=== PATIENT | male | born 1955 | race Caucasian/White ===

== ENCOUNTER 2018-04-26 07:11 | Emergency (ER) | payer OTHER ==
[~2018-04-26] VITALS: Ht 170.2 cm; Wt 59.0 kg
[~2018-04-26 07:11] MED LIST: ALPR1TAB2 PO; INSU100V9 SUBCUT; KLO.5 PO; METO-290 PO; MIRT15TA7 PO; NOR10 PO; PRO40 PO
[2018-04-26 07:15] VITALS: BP_SYST 132
[2018-04-26] MEDS ORDERED: LIDOCAINE 1%, 20 ML MDV 20 ML ONE (07:58)
[2018-04-26] MEDS ORDERED: ACETAMINOPHEN/CODEINE 300 MG-30 MG TABLET PO ONE (08:15)
[2018-04-26 08:48] VITALS: BP_SYST 132
== END 2018-04-26 08:48 | disposition home or self-care (01) ==
LOC: SED 07:11
DX: S01.01XA Laceration without foreign body of scalp, initial encounter (principal); I10 Essential (primary) hypertension; E11.29 Type 2 diabetes mellitus with other diabetic kidney complication; N28.9 Disorder of kidney and ureter, unspecified; Z79.4 Long term (current) use of insulin; Z79.899 Other long term (current) drug therapy; W01.10XA Fall on same level from slipping, tripping and stumbling with subsequent striking against unspecified object, initial encounter; Y93.89 Activity, other specified; Y92.89 Other specified places as the place of occurrence of the external cause; Y99.8 Other external cause status
CPT/HCPCS: 12002; 70450; 99284; J2001

== ENCOUNTER 2018-05-19 10:33 | Emergency (ER) | payer OTHER ==
[~2018-05-19] VITALS: Ht 170.2 cm; Wt 59.0 kg
[2018-05-19 10:37] VITALS: BP_SYST 126
[2018-05-19 10:55] VITALS: BP_SYST 126
== END 2018-05-19 10:55 | disposition home or self-care (01) ==
LOC: SED 10:33
DX: S01.01XD Laceration without foreign body of scalp, subsequent encounter (principal); I10 Essential (primary) hypertension; E11.29 Type 2 diabetes mellitus with other diabetic kidney complication; N28.9 Disorder of kidney and ureter, unspecified; Z79.4 Long term (current) use of insulin; Z79.899 Other long term (current) drug therapy; X58.XXXD Exposure to other specified factors, subsequent encounter
CPT/HCPCS: 99281

== ENCOUNTER 2018-09-06 07:05 | Emergency (ER) | payer OTHER ==
[~2018-09-06] VITALS: Ht 170.2 cm; Wt 77.1 kg
[2018-09-06 07:09] VITALS: BP_SYST 182
[2018-09-06] MEDS ORDERED: NACL 0.9% 1,000 ML IV ONE ×2 (07:44→08:00)
[2018-09-06] MEDS ORDERED: ASPIRIN 81 MG TAB.CHEW PO ONE (07:45)
[2018-09-06] MEDS ORDERED: NALOXONE HCL 2 MG/2 ML SYR IVP ONE (07:45)
[2018-09-06] MEDS ORDERED: INSULIN REGULAR, HUMAN 10 UNITS/0.1 ML INJ IVP ONE (08:00)
[2018-09-06 08:28] LABS: BASOPHILS % (AUTO) 0.5 % (0.0-2.0); EOSINOPHILS # (AUTO) 0.1 K/uL (0.0-0.4); EOSINOPHILS % (AUTO) 2.2 % (0.0-4.0); HEMATOCRIT 37.5 % (36-54); HEMOGLOBIN 12.6 g/dL (14.0-18.0); LYMPHOCYTES # (AUTO) 0.6 K/uL (1.0-5.5); LYMPHOCYTES % (AUTO) 12.8 % (20.5-51.5); MEAN CORPUSCULAR HEMOGLOBIN 34 pg (27-31); MEAN CORPUSCULAR HGB CONC 34 % (32-36); MEAN CORPUSCULAR VOLUME 101 fL (79.0-98.0); MONOCYTES # (AUTO) 0.2 K/uL (0.0-1.0); MONOCYTES % (AUTO) 3.7 % (1.7-9.3); NEUTROPHILS # (AUTO) 4.1 K/uL (1.8-7.7); NEUTROPHILS % (AUTO) 80.8 % (40.0-70.0); PLATELET COUNT (AUTO) 185 K/uL (130-430); RED BLOOD CELL COUNT(AUTO) 3.73 MIL/uL (4.2-6.2); RED CELL DISTRIBUTION WIDTH 13.5 % (9.0-15.0)
[2018-09-06 08:32] LABS: ANION GAP 12 (5-15); CALCIUM 9.4 mg/dL (8.4-11.0); CHLORIDE 92 mmol/L (98-107); CREATININE 4.77 mg/dL (0.55-1.30); GLUCOSE 379 mg/dL (70-99); POTASSIUM 3.6 mmol/L (3.5-5.1); SODIUM SERUM 129 mmol/L (136-145); UREA NITROGEN, BLOOD 54 mg/dL (8-21)
[2018-09-06 08:34] LABS: GFR AFRICAN AMERICAN 16 mL/min (>90); INR 1.1 (0.80-1.20); PROTHROMBIN TIME 10.9 SECS (9.5-12.5)
[2018-09-06 08:36] LABS: ALANINE AMINOTRANSFERASE 25 U/L (12-78); ALBUMIN 3.8 g/dL (3.4-4.8); AMYLASE 80 U/L (0-100); ASPARTATE AMINOTRANSFERASE 27 U/L (10-37); LIPASE 419 U/L (73-393); TOTAL BILIRUBIN 0.6 mg/dL (0.0-1.0)
[2018-09-06 08:37] LABS: ALCOHOL, BLOOD < 3 mg/dL (<10)
[2018-09-06 08:47] LABS: BILIRUBIN,URINE NEGATIVE (NEGATIVE); BLOOD, URINE 1+ (NEGATIVE); CLARITY/URINE CLEAR (CLEAR); COLOR,URINE YELLOW (YELLOW); GLUCOSE,URINE 3+ (NEGATIVE); KETONES,URINE NEGATIVE (NEGATIVE); LEUKOCYTE ESTERASE ,URINE NEGATIVE (NEGATIVE); NITRITE, URINE NEGATIVE (NEGATIVE); PROTEIN URINE 3+ (NEGATIVE); UROBILINOGEN,URINE 0.2 (0.2-1.0)
[2018-09-06 08:51] LABS: ACETAMINOPHEN < 1 ug/mL (1-30)
[2018-09-06 09:14] LABS: CKMB RELATIVE INDEX 2.7 (0.0-2.9); CREATINE KINASE MB 9.9 ng/mL (0-3.6)
[2018-09-06 09:17] LABS: BARBITURATE, URINE NEGATIVE (NEG <=200); BENZODIAZEPINE, URINE NEGATIVE (NEG <=150); CANNABINOID, URINE POSITIVE (NEG <=50); COCAINE, URINE NEGATIVE (NEG <=150); METHAMPHETAMINES SCREEN,URINE NEGATIVE (NEG <=500); OPIATE, URINE NEGATIVE (NEG <=100); PHENCYCLIDINE SCREEN,URINE NEGATIVE (NEG <=25); UR TRICYCLIC ANTIDEPRESSANTS NEGATIVE (NEG <=300); URINE AMPHETAMINE NEGATIVE (NEG <=500); URINE METHADONE NEGATIVE (NEG <=200); URINE OXYCODONE SCREEN NEGATIVE (NEG <=100); URINE PROPOXYPHENE SCREEN NEGATIVE (NEG <=300)
[2018-09-06] MEDS ORDERED: LORazepam 2 MG/ML VIAL (FOR ER USE) IVP ONE (09:30)
[2018-09-06 09:46] LABS: BACTERIA,URINE None Seen /HPF (None Seen); WBC,URINE NONE SEEN /HPF (0-3)
[2018-09-06 10:05] VITALS: BP_SYST 211
[2018-09-06 10:18] LABS: HYALINE CASTS, URINE 0-10 /LPF (None Seen)
== END 2018-09-06 10:03 | disposition short-term general hospital (02) ==
LOC: SED 07:05
DX: R41.82 Altered mental status, unspecified (principal); I61.9 Nontraumatic intracerebral hemorrhage, unspecified; E11.22 Type 2 diabetes mellitus with diabetic chronic kidney disease; I12.9 Hypertensive chronic kidney disease with stage 1 through stage 4 chronic kidney disease, or unspecified chronic kidney disease; N18.9 Chronic kidney disease, unspecified; Z99.2 Dependence on renal dialysis
CPT/HCPCS: 36415; 70450; 71045; 80053; 80307; 81000; 82140; 82150; 82550; 82553; 82962; 83605; 83690; 84484; 85025; 85610; 85730; 87040; 93005; 96361; 96374; 96375; 99285; G0480; G0481; G0482; J2060; J2310; J7030; J1815

== ENCOUNTER 2018-12-04 16:48 | Inpatient (IN) | payer OTHER ==
[~2018-12-04] VITALS: Ht 170.2 cm; Wt 55.5 kg
[2018-12-04 16:50] VITALS: BP_SYST 101
[2018-12-04] MEDS ORDERED: LORazepam 2 MG/ML VIAL (FOR ER USE) IVP ONE (17:00)
[2018-12-04] MEDS ORDERED: HALOPERIDOL LACTATE 5 MG/ML VIAL IVP ONE (17:00)
[2018-12-04] MEDS ORDERED: DIPHENHYDRAMINE INJ 50 MG/ML VIAL IVP ONE (17:00)
[2018-12-04] MEDS ORDERED: DIPHENHYDRAMINE INJ 50 MG/ML VIAL ONE (17:05)
[2018-12-04] MEDS ORDERED: HALOPERIDOL LACTATE 5 MG/ML VIAL ONE (17:06)
[2018-12-04] MEDS ORDERED: LORazepam 2 MG/ML VIAL (FOR ER USE) ONE (17:06)
[2018-12-04 17:19] LABS: BASOPHILS % (AUTO) 0.1 % (0.0-2.0); EOSINOPHILS % (AUTO) 0.2 % (0.0-4.0); HEMATOCRIT 29.7 % (36-54); HEMOGLOBIN 10.1 g/dL (14.0-18.0); LYMPHOCYTES # (AUTO) 1.9 K/uL (1.0-5.5); LYMPHOCYTES % (AUTO) 15.8 % (20.5-51.5); MEAN CORPUSCULAR HEMOGLOBIN 34 pg (27-31); MEAN CORPUSCULAR HGB CONC 34 % (32-36); MEAN CORPUSCULAR VOLUME 100 fL (79.0-98.0); MONOCYTES # (AUTO) 0.7 K/uL (0.0-1.0); MONOCYTES % (AUTO) 6.2 % (1.7-9.3); NEUTROPHILS # (AUTO) 9.2 K/uL (1.8-7.7); NEUTROPHILS % (AUTO) 77.7 % (40.0-70.0); PLATELET COUNT (AUTO) 195 K/uL (130-430); RED BLOOD CELL COUNT(AUTO) 2.97 MIL/uL (4.2-6.2); WHITE BLOOD COUNT (AUTO) 11.8 K/uL (4.8-10.8)
[2018-12-04] MEDS ORDERED: ISOS20TA8 PO (17:21)
[2018-12-04] MEDS ORDERED: LIP40 PO (17:21)
[2018-12-04] MEDS ORDERED: HYDR100T25 PO (17:21)
[2018-12-04] MEDS ORDERED: ASPI-1155 PO (17:21)
[2018-12-04] MEDS ORDERED: METO-442 PO (17:21)
[2018-12-04] MEDS ORDERED: CAT3PAT TD (17:21)
[2018-12-04 17:22] LABS: ANION GAP 17 (5-15); CALCIUM 8.9 mg/dL (8.4-11.0); CHLORIDE 93 mmol/L (98-107); CREATININE 5.15 mg/dL (0.55-1.30); GLUCOSE 346 mg/dL (70-99); POTASSIUM 4.2 mmol/L (3.5-5.1); SODIUM SERUM 132 mmol/L (136-145); UREA NITROGEN, BLOOD 55 mg/dL (8-21)
[2018-12-04 17:23] LABS: GFR AFRICAN AMERICAN 15 mL/min (>90)
[2018-12-04 17:26] LABS: INR 1.1 (0.80-1.20)
[2018-12-04 17:27] LABS: ALANINE AMINOTRANSFERASE 33 U/L (12-78); ALBUMIN 3.5 g/dL (3.4-4.8); ASPARTATE AMINOTRANSFERASE 33 U/L (10-37); TOTAL BILIRUBIN 0.9 mg/dL (0.0-1.0)
[2018-12-04 17:31] LABS: BILIRUBIN,URINE NEGATIVE (NEGATIVE); CLARITY/URINE CLEAR (CLEAR); COLOR,URINE YELLOW (YELLOW); GLUCOSE,URINE 3+ (NEGATIVE); KETONES,URINE NEGATIVE (NEGATIVE); NITRITE, URINE NEGATIVE (NEGATIVE); PROTEIN URINE 2+ (NEGATIVE); UROBILINOGEN,URINE 0.2 (0.2-1.0)
[2018-12-04 17:32] LABS: BLOOD, URINE TRACE (NEGATIVE); LEUKOCYTE ESTERASE ,URINE TRACE (NEGATIVE)
[2018-12-04 17:33] LABS: BACTERIA,URINE FEW /HPF (None Seen); BARBITURATE, URINE NEGATIVE (NEG <=200); BENZODIAZEPINE, URINE NEGATIVE (NEG <=150); CANNABINOID, URINE POSITIVE (NEG <=50); COCAINE, URINE NEGATIVE (NEG <=150); METHAMPHETAMINES SCREEN,URINE NEGATIVE (NEG <=500); OPIATE, URINE NEGATIVE (NEG <=100); PHENCYCLIDINE SCREEN,URINE NEGATIVE (NEG <=25); RBC,URINE 0-3 /HPF (0-3); UR TRICYCLIC ANTIDEPRESSANTS NEGATIVE (NEG <=300); URINE AMPHETAMINE NEGATIVE (NEG <=500); URINE METHADONE NEGATIVE (NEG <=200); URINE OXYCODONE SCREEN NEGATIVE (NEG <=100); URINE PROPOXYPHENE SCREEN NEGATIVE (NEG <=300)
[2018-12-04 17:34] LABS: MUCUS,URINE None Seen /LPF (None Seen)
[2018-12-04 17:40] LABS: ALCOHOL, BLOOD < 3 mg/dL (<10)
[2018-12-04] MEDS ORDERED: ETOMIDATE 20 MG/ 10 ML VIAL (AMIDATE) IVP ONE (18:00)
[2018-12-04] MEDS ORDERED: cefTRIAXone 1 GM in D5W 50 ML IV ONE (18:00)
[2018-12-04] MEDS ORDERED: INSULIN REGULAR, HUMAN 10 UNITS/0.1 ML INJ IVP ONE (18:00)
[2018-12-04] MEDS ORDERED: cefTRIAXone 1 GM VIAL ONE (18:24)
[2018-12-04] MEDS ORDERED: NACL 0.9% 1,000 ML IV ONE ×2 (19:15)
[2018-12-04] MEDS ORDERED: ENALAPRILAT DIHYDRATE 1.25 MG/ML VIAL IVP ONE (19:15)
[2018-12-04] MEDS ORDERED: ENALAPRILAT DIHYDRATE 1.25 MG/ML VIAL ONE (19:24)
[2018-12-04] MEDS ORDERED: D5/0.45 NS 1,000 ML IV ONE (20:15)
[2018-12-04 20:50] VITALS: BP_SYST 147
[2018-12-04 21:00] VITALS: BP_SYST 147; BP_SYST 152
[2018-12-04] MEDS ORDERED: HALOPERIDOL LACTATE 5 MG/ML VIAL IM ONE (21:45)
[2018-12-04] MEDS ORDERED: ACETAMINOPHEN 650 MG/20.3 ML UDC GT PRN (21:45)
[2018-12-04] MEDS ORDERED: cloNIDine HCL 0.3 MG/24 HR PATCH.TDWK TD SCH (21:45)
[2018-12-04] MEDS ORDERED: hydrALAZINE HCL 20 MG/ML VIAL IVP PRN (21:45)
[2018-12-04 22:00] VITALS: BP_SYST 100
[2018-12-04] MEDS: amLODIPine BESYLATE 10 MG TABLET PO SCH (22:03)
[2018-12-04] MEDS ORDERED: amLODIPine BESYLATE 10 MG TABLET ONE (22:09)
[2018-12-04 22:36] LABS: CKMB RELATIVE INDEX 1.3 (0.0-2.9); CREATINE KINASE MB 10.2 ng/mL (0-3.6)
[2018-12-04 23:00] VITALS: BP_SYST 148
[2018-12-05] VITALS (24 sets, daily range): BP systolic 100–212
[2018-12-05 05:53] LABS: BASOPHILS % (AUTO) 0.3 % (0.0-2.0); EOSINOPHILS % (AUTO) 0.2 % (0.0-4.0); HEMATOCRIT 26.5 % (36-54); HEMOGLOBIN 8.8 g/dL (14.0-18.0); LYMPHOCYTES # (AUTO) 0.8 K/uL (1.0-5.5); LYMPHOCYTES % (AUTO) 9.8 % (20.5-51.5); MEAN CORPUSCULAR HEMOGLOBIN 33 pg (27-31); MEAN CORPUSCULAR HGB CONC 33 % (32-36); MEAN CORPUSCULAR VOLUME 98 fL (79.0-98.0); MONOCYTES # (AUTO) 0.5 K/uL (0.0-1.0); MONOCYTES % (AUTO) 5.9 % (1.7-9.3); NEUTROPHILS # (AUTO) 7.2 K/uL (1.8-7.7); NEUTROPHILS % (AUTO) 83.8 % (40.0-70.0); PLATELET COUNT (AUTO) 125 K/uL (130-430); WHITE BLOOD COUNT (AUTO) 8.6 K/uL (4.8-10.8)
[2018-12-05 06:05] LABS: CREATININE 5.04 mg/dL (0.55-1.30); POTASSIUM 4.2 mmol/L (3.5-5.1)
[2018-12-05] MEDS: INSULIN REGULAR, HUMAN 100 UNITS/ML, 10 ML VIAL (novoLIN R) SUBCUT PRN ×2 (06:32→11:45)
[2018-12-05] MEDS ORDERED: cloNIDine HCL 0.1 MG TABLET PO PRN (07:45)
[2018-12-05] MEDS: ATORVASTATIN 20 MG TABLET PO SCH (08:12)
[2018-12-05] MEDS: ISOSORBIDE DINITRATE 20 MG TABLET (ISORDIL) PO SCH ×3 (08:12→21:36)
[2018-12-05] MEDS: METOPROLOL TARTRATE 50 MG TABLET PO SCH ×2 (08:13→21:37)
[2018-12-05] MEDS: amLODIPine BESYLATE 10 MG TABLET PO SCH (08:13)
[2018-12-05] MEDS: ASPIRIN 81 MG TAB.CHEW PO SCH (08:13)
[2018-12-05] MEDS: hydrALAZINE HCL 25 MG TABLET PO SCH ×3 (08:18→21:37)
[2018-12-05] MEDS ORDERED: INSULIN GLARGINE 100 UNITS/ML 10 ML VIAL SUBCUT SCH (09:00)
[2018-12-05] MEDS ORDERED: cloNIDine HCL 0.3 MG/24 HR PATCH.TDWK TD SCH (09:00)
[2018-12-05] MEDS ORDERED: hydrALAZINE HCL 20 MG/ML VIAL IVP ONE (14:15)
[2018-12-05] MEDS: LORazepam 2 MG/ML VIAL IVP PRN (16:19)
[2018-12-05] MEDS: cefTRIAXone 1 GM in D5W 50 ML IV SCH (17:19)
[2018-12-06] VITALS (23 sets, daily range): BP systolic 114–175
[2018-12-06 05:43] LABS: CREATININE 4.01 mg/dL (0.55-1.30)
[2018-12-06 05:46] LABS: BASOPHILS % (AUTO) 0.4 % (0.0-2.0); EOSINOPHILS # (AUTO) 0.1 K/uL (0.0-0.4); EOSINOPHILS % (AUTO) 1.1 % (0.0-4.0); HEMATOCRIT 29.9 % (36-54); LYMPHOCYTES # (AUTO) 0.7 K/uL (1.0-5.5); LYMPHOCYTES % (AUTO) 9.3 % (20.5-51.5); MEAN CORPUSCULAR HEMOGLOBIN 34 pg (27-31); MEAN CORPUSCULAR HGB CONC 34 % (32-36); MEAN CORPUSCULAR VOLUME 100 fL (79.0-98.0); MONOCYTES # (AUTO) 0.6 K/uL (0.0-1.0); MONOCYTES % (AUTO) 8.3 % (1.7-9.3); NEUTROPHILS # (AUTO) 5.8 K/uL (1.8-7.7); NEUTROPHILS % (AUTO) 80.9 % (40.0-70.0); PLATELET COUNT (AUTO) 186 K/uL (130-430); RED BLOOD CELL COUNT(AUTO) 2.99 MIL/uL (4.2-6.2); WHITE BLOOD COUNT (AUTO) 7.2 K/uL (4.8-10.8)
[2018-12-06 05:59] LABS: ALBUMIN 2.9 g/dL (3.4-4.8); TOTAL BILIRUBIN 0.6 mg/dL (0.0-1.0)
[2018-12-06 06:02] LABS: POTASSIUM 2.8 mmol/L (3.5-5.1)
[2018-12-06] MEDS ORDERED: D5W 1,000 ML IV PRN ×2 (06:02)
[2018-12-06] MEDS ORDERED: DEXTROSE 50% JECT 50 ML DISP.SYRIN ONE (06:11)
[2018-12-06] MEDS ORDERED: GLUCOSE 15 GM GEL (in 37.5 GM TUBE) PO PRN (06:15)
[2018-12-06] MEDS ORDERED: POTASSIUM CHLORIDE 20 MEQ/PKT PACKET PO ONE (07:45)
[2018-12-06] MEDS: hydrALAZINE HCL 25 MG TABLET PO SCH ×3 (09:00→20:28)
[2018-12-06] MEDS: DEXTROSE 50% JECT 50 ML DISP.SYRIN IVP PRN ×2 (09:42→16:12)
[2018-12-06] MEDS: hydrALAZINE HCL 20 MG/ML VIAL IVP PRN (09:47)
[2018-12-06] MEDS: ATORVASTATIN 20 MG TABLET PO SCH (11:30)
[2018-12-06] MEDS: amLODIPine BESYLATE 10 MG TABLET PO SCH (11:30)
[2018-12-06] MEDS: METOPROLOL TARTRATE 50 MG TABLET PO SCH ×2 (11:30→20:29)
[2018-12-06] MEDS: ASPIRIN 81 MG TAB.CHEW PO SCH (11:30)
[2018-12-06] MEDS: ISOSORBIDE DINITRATE 20 MG TABLET (ISORDIL) PO SCH ×3 (11:31→20:29)
[2018-12-06] MEDS: LORazepam 2 MG/ML VIAL IVP PRN ×2 (11:48→23:00)
[2018-12-06] MEDS ORDERED: D10W 1,000 ML IV SCH (13:00)
[2018-12-06] MEDS: cefTRIAXone 1 GM in D5W 50 ML IV SCH (16:32)
[2018-12-07] VITALS (17 sets, daily range): BP systolic 124–166
[2018-12-07] MEDS: LORazepam 2 MG/ML VIAL IVP PRN ×2 (03:18→19:42)
[2018-12-07] MEDS ORDERED: D10W 1,000 ML IV SCH ×2 (07:45)
[2018-12-07] MEDS: ATORVASTATIN 20 MG TABLET PO SCH (08:18)
[2018-12-07] MEDS: ASPIRIN 81 MG TAB.CHEW PO SCH (08:18)
[2018-12-07] MEDS: METOPROLOL TARTRATE 50 MG TABLET PO SCH ×2 (08:19→21:56)
[2018-12-07] MEDS: amLODIPine BESYLATE 10 MG TABLET PO SCH (08:20)
[2018-12-07] MEDS: ISOSORBIDE DINITRATE 20 MG TABLET (ISORDIL) PO SCH ×3 (08:20→21:58)
[2018-12-07] MEDS: hydrALAZINE HCL 25 MG TABLET PO SCH ×3 (08:21→21:55)
[2018-12-07] MEDS: INSULIN REGULAR, HUMAN 100 UNITS/ML, 10 ML VIAL (novoLIN R) SUBCUT PRN (12:41)
[2018-12-07] MEDS: cefTRIAXone 1 GM in D5W 50 ML IV SCH (18:00)
[2018-12-07] MEDS: DEXTROSE 50% JECT 50 ML DISP.SYRIN IVP PRN (22:31)
[2018-12-08 00:02] VITALS: BP_SYST 148
[2018-12-08] MEDS: ISOSORBIDE DINITRATE 20 MG TABLET (ISORDIL) PO SCH ×3 (09:42→20:50)
[2018-12-08] MEDS: ASPIRIN 81 MG TAB.CHEW PO SCH (09:42)
[2018-12-08] MEDS: ATORVASTATIN 20 MG TABLET PO SCH (09:45)
[2018-12-08 09:50] VITALS: BP_SYST 190
[2018-12-08] MEDS: INSULIN REGULAR, HUMAN 100 UNITS/ML, 10 ML VIAL (novoLIN R) SUBCUT PRN ×2 (09:50→11:27)
[2018-12-08] MEDS: amLODIPine BESYLATE 10 MG TABLET PO SCH (10:02)
[2018-12-08] MEDS: METOPROLOL TARTRATE 50 MG TABLET PO SCH ×2 (10:02→20:49)
[2018-12-08] MEDS: hydrALAZINE HCL 25 MG TABLET PO SCH ×3 (10:02→20:50)
[2018-12-08] MEDS: LORazepam 2 MG/ML VIAL IVP PRN ×2 (11:20→23:34)
[2018-12-08 12:24] VITALS: BP_SYST 142
[2018-12-08 16:48] VITALS: BP_SYST 133
[2018-12-08] MEDS: DEXTROSE 50% JECT 50 ML DISP.SYRIN IVP PRN ×2 (16:52→20:49)
[2018-12-08] MEDS: cefTRIAXone 1 GM in D5W 50 ML IV SCH (17:07)
[2018-12-08 20:00] VITALS: BP_SYST 143
[2018-12-09 00:18] VITALS: BP_SYST 90
[2018-12-09] MEDS: INSULIN REGULAR, HUMAN 100 UNITS/ML, 10 ML VIAL (novoLIN R) SUBCUT PRN ×4 (06:10→20:33)
[2018-12-09] MEDS: METOPROLOL TARTRATE 50 MG TABLET PO SCH ×2 (09:00→20:25)
[2018-12-09] MEDS: ISOSORBIDE DINITRATE 20 MG TABLET (ISORDIL) PO SCH ×3 (09:00→20:24)
[2018-12-09] MEDS: amLODIPine BESYLATE 10 MG TABLET PO SCH (09:00)
[2018-12-09] MEDS: hydrALAZINE HCL 25 MG TABLET PO SCH ×3 (09:00→20:25)
[2018-12-09 09:05] VITALS: BP_SYST 153
[2018-12-09] MEDS: ATORVASTATIN 20 MG TABLET PO SCH (09:06)
[2018-12-09] MEDS: ASPIRIN 81 MG TAB.CHEW PO SCH (09:06)
[2018-12-09 12:43] VITALS: BP_SYST 141
[2018-12-09] MEDS ORDERED: ACETAMINOPHEN 650 MG/20.3 ML UDC PO PRN ×2 (15:02→15:30)
[2018-12-09 16:16] VITALS: BP_SYST 154
[2018-12-09] MEDS ORDERED: ACETAMINOPHEN 325 MG TABLET PO PRN (16:30)
[2018-12-09] MEDS: cefTRIAXone 1 GM in D5W 50 ML IV SCH (17:33)
[2018-12-09] MEDS: hydrALAZINE HCL 20 MG/ML VIAL IVP PRN (17:38)
[2018-12-09 20:00] VITALS: BP_SYST 159
[2018-12-09] MEDS: LORazepam 2 MG/ML VIAL IVP PRN (21:06)
[2018-12-09 23:42] VITALS: BP_SYST 148
[2018-12-10] MEDS: INSULIN REGULAR, HUMAN 100 UNITS/ML, 10 ML VIAL (novoLIN R) SUBCUT PRN ×4 (06:20→20:30)
[2018-12-10] MEDS: hydrALAZINE HCL 25 MG TABLET PO SCH ×3 (09:02→20:27)
[2018-12-10] MEDS: METOPROLOL TARTRATE 50 MG TABLET PO SCH ×2 (09:02→20:26)
[2018-12-10] MEDS: ASPIRIN 81 MG TAB.CHEW PO SCH (09:03)
[2018-12-10] MEDS: ATORVASTATIN 20 MG TABLET PO SCH (09:03)
[2018-12-10] MEDS: ISOSORBIDE DINITRATE 20 MG TABLET (ISORDIL) PO SCH ×3 (09:03→20:26)
[2018-12-10 09:08] VITALS: BP_SYST 198
[2018-12-10] MEDS: amLODIPine BESYLATE 10 MG TABLET PO SCH (09:08)
[2018-12-10 12:25] VITALS: BP_SYST 139
[2018-12-10 15:35] VITALS: BP_SYST 130
[2018-12-10 16:42] VITALS: BP_SYST 137
[2018-12-10] MEDS: cefTRIAXone 1 GM in D5W 50 ML IV SCH (17:22)
[2018-12-10 20:21] VITALS: BP_SYST 150
[2018-12-11 00:08] VITALS: BP_SYST 143
[2018-12-11] MEDS: INSULIN REGULAR, HUMAN 100 UNITS/ML, 10 ML VIAL (novoLIN R) SUBCUT PRN ×3 (06:01→17:30)
[2018-12-11 07:26] VITALS: BP_SYST 154
[2018-12-11] MEDS: ISOSORBIDE DINITRATE 20 MG TABLET (ISORDIL) PO SCH ×2 (09:24→15:00)
[2018-12-11] MEDS: hydrALAZINE HCL 25 MG TABLET PO SCH ×2 (09:25→15:00)
[2018-12-11] MEDS: METOPROLOL TARTRATE 50 MG TABLET PO SCH (09:25)
[2018-12-11] MEDS: amLODIPine BESYLATE 10 MG TABLET PO SCH (09:26)
[2018-12-11] MEDS: ASPIRIN 81 MG TAB.CHEW PO SCH (09:26)
[2018-12-11] MEDS: ATORVASTATIN 20 MG TABLET PO SCH (09:26)
[2018-12-11 12:46] VITALS: BP_SYST 133
[2018-12-11 16:36] VITALS: BP_SYST 132
[2018-12-11 18:14] VITALS: BP_SYST 142
[2018-12-11 18:42] VITALS: BP_SYST 128
== END 2018-12-11 19:57 | disposition home health service (06) | DRG 871 ==
LOC: SED 16:48 → SIC 20:02 → STU 12-07 13:53
PROVIDERS: ADMIT Family Medicine; ATTEND Family Medicine
PROC: 5A1D70Z Performance of Urinary Filtration, Intermittent, Less than 6 Hours Per Day (ICD-10-PCS; principal; 2018-12-05)
PROC: 5A1D70Z Performance of Urinary Filtration, Intermittent, Less than 6 Hours Per Day (ICD-10-PCS; 2018-12-07)
PROC: 5A1D70Z Performance of Urinary Filtration, Intermittent, Less than 6 Hours Per Day (ICD-10-PCS; 2018-12-09)
PROC: 5A1D70Z Performance of Urinary Filtration, Intermittent, Less than 6 Hours Per Day (ICD-10-PCS; 2018-12-11)
DX: A41.9 Sepsis, unspecified organism (principal); G92 Toxic encephalopathy; N18.6 End stage renal disease; I12.0 Hypertensive chronic kidney disease with stage 5 chronic kidney disease or end stage renal disease; T40.7X1A Poisoning by cannabis (derivatives), accidental (unintentional), initial encounter; E11.22 Type 2 diabetes mellitus with diabetic chronic kidney disease; F12.90 Cannabis use, unspecified, uncomplicated; I25.10 Atherosclerotic heart disease of native coronary artery without angina pectoris; F32.9 Major depressive disorder, single episode, unspecified; Z95.1 Presence of aortocoronary bypass graft; Z99.2 Dependence on renal dialysis; Z79.82 Long term (current) use of aspirin; Z79.899 Other long term (current) drug therapy; Y92.89 Other specified places as the place of occurrence of the external cause
CPT/HCPCS: 36415; 70450-TC; 71045; 80048; 80053; 80307; 81000-TC; 82550-TC; 82553-TC; 82962; 83605; 84484; 85025; 85610-TC; 85730-TC; 87040-TC; 87081; 87086; 90656; 90935; 90937; 93005; 96361; 96365; 96375; 97116-GP; 97530-GP; 99291; G0378; G0482; J0360; J0696; J1200; J1630; J1815; J2060; J3490; J7030; J7060